=== PATIENT | female | born 1935 | race Caucasian/White ===

== ENCOUNTER 2025-04-29 16:25 | Emergency (ER) | payer MEDICARE, OTHER, SELFPAY ==
[2025-04-29 16:32] VITALS: BP 115/61; PULSE 75; RESP 16; TEMP 36.5; O2SAT 93; BMI 27.5
--- NOTE | 2025-04-29 17:06 | ED.GENADULT ---
HPI - General Adult General Chief complaint: Weakness Stated complaint: weakness Time Seen by Provider: 04/29/25 17:03 History of Present Illness HPI narrative: patient lives at [facility] in [place]. today the staff obtained several BP and the systolic was low 77. concerned of some lethargic so triple swabbed and negative results. patient denies any complaints and family is the one wanting the patient evaluated. denies pain. BS -141. hx of CVA effecting the left side. 89-year-old woman presenting to the emergency department from area [facility]. Blood pressures as obtained by staff today were noted to be low and with decreasing energy was swab for COVID, influenza and RSV. Review these results were negative and was directed for family concern to the emergency department for further evaluation. Underlying history of CVA and anticoagulated with apixaban. Apparently with CVA some residual effect of the left side. She is not normally ambulatory; in a wheelchair. No fever. Asking why she is here repeatedly noting that she feels fine and wondering how long she has to be here. Related Data Home Medications ?Medication ?Instructions ?Recorded ?Confirmed Guaifed (guaifenesin) 10 ml PO .every 4 hours PRN 04/29/25 04/29/25 acetaminophen 325 mg capsule 325 mg PO TID PRN 04/29/25 04/29/25 apixaban 2.5 mg tablet (Eliquis) 2.5 mg PO BID 04/29/25 04/29/25 atorvastatin 80 mg tablet 80 mg PO HS 04/29/25 04/29/25 buspirone 5 mg tablet 5 mg PO TID 04/29/25 04/29/25 citalopram 20 mg tablet (Celexa) 10 mg PO DAILY 04/29/25 04/29/25 furosemide 20 mg tablet 20 mg PO DAILY 04/29/25 04/29/25 lidocaine external patch 04/29/25 lisinopril 5 mg tablet 5 mg PO DAILY 04/29/25 04/29/25 oxycodone 10 mg tablet 5 mg PO DAILY 04/29/25 04/29/25 pentoxifylline 400 mg 400 mg PO BID 04/29/25 04/29/25 tablet,extended release polyethylene glycol 3350 17 17 g PO DAILY 04/29/25 04/29/25 gram/dose oral powder (Miralax) sennosides 8.6 mg-docusate sodium 1 tab-cap PO BID 04/29/25 04/29/25 50 mg tablet (Laxacin) Allergies Allergy/AdvReac Type Severity Reaction Status Date / Time No Known Drug Allergies Allergy Verified 04/29/25 16:49 Review of Systems Status of ROS: Reports: unobtainable due to medical condition (Appears somewhat challenged recall any would not trust beyond the immediate) PFSH PFS Social History How often do you have a drink containing alcohol: never AUDIT-C Alcohol total score: 0 Non-prescribed substance use: denies use Exam Narrative: Exam Narrative: Pleasant. NAD. Breathing easily. Cranial nerves 2-12 to be intact. Head is atraumatic. Pupils are 3 mm and equal. Repeatedly asking questions that have just been answered. Lower extremity edema 1+ pretibial pitting. Lungs are clear. Heart in regular rate and rhythm with an occasional ectopic beat. Abdomen is protuberant soft and nontender. Moving all extremities are with some diminished strength on left side. Const: Vital Signs, click to edit/add: Vital Signs - 24 hr 04/29/25 16:32 Temperature 97.7 F Pulse Rate [Pulse Oximeter] 75 Respiratory Rate 16 Blood Pressure [Ri ght Upper Arm] 115/61 Pulse Oximetry 93 Oxygen Delivery Me thod Room Air Documenting provider has reviewed patient's vital signs: yes Course Vital Signs Vital signs: Initial Vital Signs Temperature 97.7 F 04/29/25 16:32 Temperature Source Temporal Artery Scan 04/29/25 16:32 Pulse Rate 75 04/29/25 16:32 Respiratory Rate 16 04/29/25 16:32 Blood Pressure 115/61 04/29/25 16:32 Blood Pressure Mean 79 04/29/25 16:32 Blood Pressure Position Sitting 04/29/25 16:32 Pulse Oximetry 93 04/29/25 16:32 Oxygen Delivery Method Room Air 04/29/25 16:32 Vital Signs Temperature 97.7 F 04/29/25 16:32 Pulse Rate 75 04/29/25 16:32 Respiratory Rate 16 04/29/25 16:32 Blood Pressure 115/61 04/29/25 16:32 Pulse Oximetry 93 04/29/25 16:32 Oxygen Delivery Method Room Air 04/29/25 16:32 Temperature 97.7 F 04/29/25 16:32 Pulse Rate 76 04/29/25 19:16 Respiratory Rate 16 04/29/25 19:16 Blood Pressure 142/73 H 04/29/25 19:16 Pulse Oximetry 97 04/29/25 19:16 Oxygen Delivery Method Room Air 04/29/25 19:16 Medical Decision Making MDM Narrative Medical decision making narrative: I think will just have to do a broad evaluation looking for indication of potential infection whether this be in the urine or repeat triple swab. I would concern of influenza or COVID considering community prevalence. Does not appear to have respiratory symptoms to suggest pneumonia otherwise. Apparently no new focal weakness to suggest new CVA or extension of prior. Reassuring vitals other than O2 93%. During my interview it is in the mid to upper 90s on air. Monitor oximetry throughout time in the emergency department. Stable. Labs returned with lightly low sodium of 130 and influenza a positive. 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 I do not have lab history to trend. Otherwise has been well and anxious to leave the emergency department. See patient discharge plan for further discussion You tested positive for influenza A today. I know you are interested in discharge. Blood chemistries are still pending in if there are notable abnormalities, I will give you a call. Prescribing Tamiflu from [facility] (actually this will be dispensed by your facility) Return for persistent and increasing shortness of breath, worsening cough, uncontrolled fever. Can take acetaminophen for fever at this point. Lab Data Lab results reviewed: Yes I reviewed the patient's lab results Labs: Lab Results 04/29/25 04/29/25 04/29/25 Range/Units 17:20 18:26 Unknown WBC 7.44 (4.50-11.00) K/uL RBC 3.63 L (4.00-5.20) m/uL Hgb 11.9 L (12.0-16.0) gm/dL Hct 35.4 (33.0-51.0) % MCV 98 (80-100) fL MCH 33 (26-34) pg MCHC 34 (32-36) gm/dL RDW Coeff of Solomon 12.2 (11.5-15.5) % Plt Count 147 (140-440) K/uL Neut % (Auto) 48.4 (42.0-72.0) % Lymph % (Auto) 38.7 (20-44) % [place] % (Auto) 11.3 H (0.0-11.0) % Eos % (Auto) 1.2 (0.0-7.0) % Baso % (Auto) 0.3 (0.0-3.0) % Neut # (Auto) 3.60 (1.7-7.0) K/uL Lymph # (Auto) 2.88 (0.90-2.90) K/uL [place] # (Auto) 0.80 (0.00-0.90) K/UL Eos # (Auto) 0.09 (0.00-0.50) K/uL Baso # (Auto) 0.02 (0.00-0.30) K/uL Abs Immat Gran (auto) 0.01 (0.00-0.30) K/uL Imm/Tot Granulo (auto) 0.1 % Sodium 130 L (135-149) mmol/L Potassium 4.1 (3.6-5.1) mmol/L Chloride 97 (96-114) mmol/L Carbon Dioxide 27 (20-32) mmol/L Anion Gap 6 L (7-15) mEq/L BUN 18 (7-30) mg/dL Creatinine 0.9 (0.5-1.5) mg/dL Estimated Creat Clear 34.23 Estimated GFR 62 ml/min Glucose 134 H (60-115) mg/dL Calcium 9.0 (8.4-10.6) mg/dL C-Reactive Protein 1.6 H (0.5-1.0) mg/dL Urine Color Yellow (Yellow) Urine Appearance Clear (Clear) Urine pH 5.5 (5.0-8.5) Ur Specific [place] 1.020 (1.000-1.030) Urine Protein Negative (Negative) Urine Glucose (UA) Negative (Negative) Urine Ketones Negative (Negative) Urine Blood Negative (Negative) Urine Nitrite Negative (Negative) Urine Bilirubin Negative (Negative) Urine Urobilinogen 0.2 (0.2-1.0) Ur Leukocyte Esterase Negative (Negative) Urine RBC 0-2 (0-2) Urine WBC 2-5 (0-5) Ur Squamous Epith Cells Moderate A (None-Few) Urine Bacteria Few A (None) Fine Granular Casts Few A (None) SARS-CoV-2 (PCR) Negative SARS-CoV-2 (Negative) Influenza Type A (PCR) POSITIVE PCR FLU A A (Negative) Influenza Type B (PCR) Negative PCR FLU B (Negative) RSV (PCR) Negative PCR RSV (Negative) Discharge Plan Discharge Clinical Impression: Influenza A Patient Disposition: Home w/ Parent or Adult Condition: Stable Additional Instructions: You tested positive for influenza A today. I know you are interested in discharge. Blood chemistries are still pending in if there are notable abnormalities, I will give you a call. Prescribing Tamiflu from [facility] (actually this will be dispensed by your facility) Return for persistent and increasing shortness of breath, worsening cough, uncontrolled fever. Can take acetaminophen for fever at this point. Prescriptions: No Action acetaminophen 325 mg capsule 325 mg PO TID PRN Patient Comments: 975 mg orally lisinopril 5 mg tablet 5 mg PO DAILY pentoxifylline 400 mg tablet extended release 400 mg PO BID Rx Instructions: must administer with a meal/food polyethylene glycol 3350 [Miralax] 17 gram/dose powder 17 g PO DAILY Eliquis 2.5 mg tablet 2.5 mg PO BID citalopram [Celexa] 20 mg tablet 10 mg PO DAILY buspirone 5 mg tablet 5 mg PO TID oxycodone 10 mg tablet 5 mg PO DAILY Guaifed (guaifenesin) 10 ml PO .every 4 hours PRN atorvastatin 80 mg tablet 80 mg PO HS lidocaine external patch Patient Comments: patch lower left extremity one time a day sennosides-docusate sodium [Laxacin] 8.6-50 mg tablet 1 tab-cap PO BID furosemide 20 mg tablet 20 mg PO DAILY Follow Up/Referrals: Zahida Green MD [Primary Care Provider, Family Practice] Stand Alone Forms: [employer] Info Instructions
[2025-04-29 18:28] LABS: Appearance Urine Clear (Clear)
[2025-04-29 18:42] LABS: Hematocrit* 35.4 % (33.0-51.0); Hemoglobin* 11.9 gm/dL (12.0-16.0); Immature Granulocytes Abs Auto 0.01 K/uL (0.00-0.30); Immature Granulocytes Pct Auto 0.1 %; Lymphocytes Absolute Auto 2.88 K/uL (0.90-2.90); Mean Corpuscular HGB Conc 34 gm/dL (32-36); Mean Corpuscular Hemoglobin 33 pg (26-34); Mean Corpuscular Volume 98 fL (80-100); RDW Coefficient of Variation % 12.2 % (11.5-15.5); Red Blood Count* 3.63 m/uL (4.00-5.20); White Blood Count* 7.44 K/uL (4.50-11.00)
[2025-04-29 18:45] LABS: Slide Review Reflex No
[2025-04-29 18:47] LABS: PCR FLU A POSITIVE PCR FLU A (Negative); PCR FLU B Negative PCR FLU B (Negative); PCR RSV Negative PCR RSV (Negative); SARS PCR* Negative SARS-CoV-2 (Negative)
[2025-04-29 18:58] LABS: Chloride* 97 mmol/L (96-114); Sodium* 130 mmol/L (135-149)
[2025-04-29 18:59] LABS: Potassium* 4.1 mmol/L (3.6-5.1)
[2025-04-29 19:02] LABS: Anion Gap 6 mEq/L (7-15); Blood Urea Nitrogen* 18 mg/dL (7-30); Calcium* 9.0 mg/dL (8.4-10.6); Carbon Dioxide* 27 mmol/L (20-32); Creatinine* 0.9 mg/dL (0.5-1.5); Est. Creatinine Clearance* 34.23; Estimated Glomerular Filt Rate 62 ml/min; Glucose* 134 mg/dL (60-115)
[2025-04-29 19:16] VITALS: BP 142/73; PULSE 76; RESP 16; O2SAT 97
== END 2025-04-29 20:00 | disposition home or self-care (01) ==
PROVIDERS: Emergency Provider Family Medicine; PCP Family Medicine
DX: J10.1 Influenza due to other identified influenza virus with other respiratory manifestations (principal)
CPT/HCPCS: 36415; 80048; 81001; 85025; 86140; 87086; 87631; 99283; 99284

== ENCOUNTER 2025-04-29 19:41 | Outpatient (CLI) | payer MEDICARE, OTHER, SELFPAY | END 2025-04-29 19:42 | disposition home or self-care (01) | LOC: AMB 05-04 21:24 | PROVIDERS: PCP Family Medicine; Visit Provider Family Medicine | DX: J10.1 Influenza due to other identified influenza virus with other respiratory manifestations (principal); F03.90 Unspecified dementia, unspecified severity, without behavioral disturbance, psychotic disturbance, mood disturbance, and anxiety | CPT/HCPCS: A0425; A0428 ==